=== PATIENT | male | born 1940 | race Caucasian/White ===

== ENCOUNTER 2016-12-29 16:15 | Emergency (ER) | payer MEDICARE ==
[~2016-12-29] VITALS: Ht 167.6 cm; Wt 76.2 kg
[2016-12-29] MEDS ORDERED: PRILOSEC OTC20 MG PO (16:34)
[2016-12-29 16:45] LABS: URINE BILIRUBIN - DIPSTICK NEGATIVE (NEG); URINE BLOOD TRACE-LYSED (NEG)
[2016-12-29 17:02] LABS: URINE SQUAMOUS CELLS OCC #/hpf (OCC)
[2016-12-29 17:04] LABS: HEMOGLOBIN 13.5 g/dL (14.1-18.0); LYMPH # 2.3 K/mm3 (0.7-4.5)
--- NOTE | 2016-12-29 17:26 | Emergency Room Report ---
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 Y Clinical Suspician of Infection? Y Mental Status: 1 - Regular (Normal Baseline) Sepsis Risk:Low Sepsis Risk Have you (or family members/close friends) recently traveled outside the [place]? N If Yes, where/when: Have you had exposure to infectious disease within the past month? N TB? Other? Specify: Comment The patient complains of lightheadedness, lower abdominal pain, fever, unable to control his urine and sinus pain or pressure that started on Wednesday 3 days ago. He went to the [facility] today and they did a flu test that was negative and sent into the emergency room. He does not have a known history of diabetes, but he wants to be checked for it. He complains of numbness of his hands and feet for years. ALLERGIES Coded Allergies: No Known Allergies (12/29/16) Home Medications Reported Medications OMEPRAZOLE MAGNESIUM (Prilosec OTC) 20 MG PO DAILY History Medical History General GERD? Yes Immunization Hx DT/Tetanus Unknown Surgical Hx Previous Surgery?Y Orthopedic Procedures Social History Smoking Hx Smoker: Never Smoker Tobacco: No Alcohol Alcohol: No Review of Systems All Other Systems Reviewed and Negative Constitutional fever, weakness ENT see HPI, throat pain (slightly scratchy). Respiratory cough (slight), denies shortness of breath Cardiovascular denies chest pain Gastrointestinal abdominal pain, denies diarrhea, denies vomiting Genitourinary see HPI. Physical Exam Vital Signs Vital Signs Date Time Temp Pulse Resp B/P Pulse O2 O2 Flow FiO2 Ox Delivery Rate 12/29 1943 99 16 150/73 95 12/29 1839 98 16 147/81 97 12/29 175 102 128/67 12/29 1758 98 128/64 12/29 1758 94 128/58 12/29 1753 87 20 128/58 93 12/29 1626 100.5 107 18 101/54 94 General Appearance normal appearance, WD/WN Eye Exam - bilateral eye normal exam, bilateral eye PERRL, bilateral eye EOMI Ear, Nose, Throat hearing grossly normal, normal ENT inspection Neck normal inspection, non-tender, supple, full range of motion Respiratory Status Yes: trachea midline, chest symmetrical, non tender chest. No: respiratory distress. Lung Sounds bilateral: normal breath sounds, lungs clear. 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 No Results/Orders Laboratory Tests 12/29/16 1914: POC Glucose 344 *H 12/29/16 1655: Sodium 125 L, Potassium 4.1, Chloride 91 L, Carbon Dioxide 23, BUN 22 H, Creatinine 1.2, Estimated Creat Clear 56, Estimated GFR (MDRD) 59, Glucose 444 H, Calcium 8.6, Total Bilirubin 0.8, AST 14 L, ALT 35, Alkaline Phosphatase 90, Total Protein 7.9, Albumin 3.2 L, Globulin 4.7 H, Albumin/Globulin Ratio 0.7 L, Lipase 316, WBC 15.1 H, RBC 3.78 L, Hgb 13.5 L, Hct 35.1 L, MCV 92.8, RDW 12.2, Plt Count 228, MPV 6.9 L, Gran % 79.0, Gran # 12.0 H, Total Counted 100, Lymphocytes % 15.0, Monocytes % 5.0, Eosinophils % 0.8, Basophils % 0.2, Neutrophils 72, Lymphocytes (Manual) 20, Lymphocytes # 2.3, Monocytes (Manual) 8 , Monocytes # 0.8, Eosinophils # 0.1, Basophils # 0.0, Platelet Estimate NORMAL, PUBS MCHC 38.3 H, MCH 35.6 H 12/29/16 1635: Urine Color YELLOW, Urine Appearance CLEAR, Urine pH 5.5, Ur Specific [place] 1.010, Urine Protein NEGATIVE, Urine Ketones NEGATIVE, Urine Blood TRACE-LYSED, Urine Nitrate POSITIVE H, Urine Bilirubin NEGATIVE, Urine Urobilinogen 0.2, Ur Leukocyte Esterase 1+ H, Urine RBC NONE, Urine WBC 50-100, Ur Squamous Epith Cells OCC, Urine Bacteria 1+, Urine Glucose 3+ H Current Medication Orders Sig/Hayde Start time Last Medication Dose Route Stop Time Status Admin Levofloxacin/Dextrose 150 ML ONCE ONE 12/29 1944 CKDr 12/29 IV 12/29 Levofloxacin/Dextrose 150 ML .STK-MED ONE 12/29 1939 DC IV Iopamidol 75 ML ONCE ONE 12/29 1929 UNV 12/29 IV 12/29 Sodium Chloride 10 ML ONCE ONE 12/29 1929 UNV 12/29 IV 12/29 Insulin Human [rDNA 0 .STK-MED ONE 12/29 1830 DC origin] SC Insulin Human [rDNA 8 UNITS ONCE ONE 12/29 1829 CAN origin] SC 12/29 1830 Insulin Human [rDNA 10 UNITS ONCE ONE 12/29 1829 DC 12/29 origin] SC 12/29 Sodium Chloride 1,000 ML .STK-MED ONE 12/29 1656 DC IV Orders Procedure Date/time Status DIET-NOTHING BY MOUTH 12/30 B Active FINGERSTICK BLOOD SUGAR 12/[address] ABD & PELVIS W/ CONTRAST 12/29 1846 Active ORTHOSTATIC B/P 12/[address] ABD/PELVIS REQ 12/29 1735 Complete CHEST(2 VIEWS-NOT PORTABLE) 12/29 1735 Active LIPASE 12/29 1735 Complete CHEM 12 PROFILE 12/29 1735 Complete CULTURE, BLOOD 12/29 1656 Active CBC WITH AUTO DIFF 12/29 1656 Complete DIFFERENTIAL-WBC 12/29 1655 Complete CULTURE, URINE 12/29 1635 Active URINALYSIS/COMPLETE 12/29 1635 Complete XRAY/CT/US XRAY/CT/US XRAY chest Comment X-ray interpreted by Josué Castanon M.D.: atelectasis versus scar versus minimal infiltrate LEFT base CT abdomen, pelvis Comment CT scan interpreted by [facility] radiologist. Faxed report received and reviewed: No definite acute intra-abdominal or pelvic abnormality. 1.8 cm irregular slightly hypoattenuating focus within the periphery of the LEFT renal mid pole, with minimal adjacent stranding, possible complicated cyst, although focal areas of nephritis is possible. Progress - 8:00 PM: Discussed case with Dr. Tillman. He will follow-up the patient in his office on Wednesday. Will start Glucophage. Cipro. Advised to return if worsening. 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 Tillman on Wednesday01/01/17 in his office at either 10 AM or 1 PM. Patient Instructions DI for Diabetes Type 2, DI for Hyperglycemia -- Adult, DI for Urinary Tract Infection (UTI) Additional Instructions Start Glucophage for blood sugar. Cipro for urinary tract infection. Additional instructions for URINARY TRACT INFECTION: See your physician as soon as possible for further evaluation. Return immediately if you have an uncontrollable fever greater than 102 degrees, severe back or abdominal pain, inability to urinate, or repetetive vomiting. Prescriptions Current Visit Scripts METFORMIN HCL (Glucophage) 500 MG PO BID #60 TAB Ciprofloxacin HCl (Cipro 500MG TAB) 500 MG PO BID #20 TAB ED Critical Care Critical Care No at 2007
[2016-12-29 17:39] LABS: NEUTROPHILS 72 % (42-76)
[2016-12-29] MEDS ORDERED: CIPRO 500MG TA500 MG PO (20:07)
[2016-12-29] MEDS ORDERED: GLUCOPHAGE500 MG PO (20:07)
[2016-12-29 20:14] VITALS: BP 150/73
--- NOTE | 2016-12-30 06:06 | RADIOLOGY REPORT PS360 ---
CHEST(2 VIEWS-NOT PORTABLE) HISTORY: fever, cough ORDERING PHYSICIAN: Josué Castanon MD PATIENT AGE: 76 years COMPARISON: None available FINDINGS: The cardiomediastinal silhouette and pulmonary vascularity are within normal limits. There is coarsening of the bronchovascular markings consistent with bronchitis with atelectatic changes in the lung bases. No lobar consolidation or collapse. A 9 mm nodular opacity is present overlying the left lower lobe nonspecific. May be due to an area of atelectasis. Follow-up recommended. 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 No acute bony abnormalities. IMPRESSION: Bronchitis with by basilar atelectasis and nonspecific nodular opacity in the left lower lobe for which follow-up is recommended.
--- NOTE | 2016-12-31 13:21 | RADIOLOGY REPORT PS360 ---
CT ABD PELVIS W/ CONTRAST CLINICAL INDICATION: Lower abdominal pain and fever ABD PAIN, FEVER ORDERING PHYSICIAN: Uriel Tillman MD PATIENT AGE: 76 years COMPARISON: None TECHNIQUE: Axial images obtained with sagittal and coronal reformats. PROCEDURE: Oral Contrast: None IV Contrast: 75 mL of Isovue-370 . FINDINGS: Lower thorax: Atherosclerotic calcification of the coronary arteries. Atelectatic or fibrotic changes are present in the lung bases. ABDOMEN: Liver: No masses or biliary dilatation. Gallbladder: Cholelithiasis. No ductal dilatation or gallbladder distention Pancreas: No masses or peripancreatic fluid collections. Spleen: Unremarkable. Adrenals: Unremarkable Kidneys/ureters: Nonobstructing nephrolithiasis versus arterial calcification on the left. There are left parapelvic renal cyst. In addition, there is a irregular hypoattenuation in the lateral aspect of the left kidney measuring approximately 17 mm. This is associated with some cortical scarring. Adjacent stranding of the perinephric fat. Stomach bowel: Nondistended. No obvious mass or thickening. Appendix: No evidence of appendicitis. PELVIS: Reproductive: Unremarkable Bladder: Nondistended. No obvious stones or masses. ABDOMEN & PELVIS: Peritoneum: No abnormal fluid collections. No obvious inflammatory changes. No free air. Lymph nodes: No enlarged lymph nodes apparent. Vasculature: No evidence of abdominal aortic aneurysm. No retroperitoneal hemorrhage evident. Bones: Spondylosis of the lumbar spine IMPRESSION: 1. Somewhat irregular 1.7 cm area of decreased attenuation within the periphery of the left kidney with minimal adjacent stranding of the fat. Possibly related to an area of nephritis. Neoplasm not excluded. Complicated cyst included in differential diagnosis but felt to be less likely. Possible area of infarction. Follow-up recommended in 4-6 weeks without and with contrast with delayed imaging. 2. Cholelithiasis.
== END 2016-12-29 20:15 | disposition home or self-care (01) ==
LOC: ER 16:15
PROVIDERS: Emergency Medicine
DX: N39.0 Urinary tract infection, site not specified (principal); N10 Acute pyelonephritis; E11.65 Type 2 diabetes mellitus with hyperglycemia
CPT/HCPCS: Q9967